=== PATIENT | male | born 1985 ===

== ENCOUNTER 2016-09-28 21:31 | Emergency (ER) | payer SELFPAY ==
[~2016-09-28] VITALS: Ht 180.3 cm; Wt 80.0 kg
[2016-09-28 21:34] VITALS: Ht 180.3 cm; Wt 80.0 kg
--- NOTE | 2016-09-28 23:51 | ERD ---
ER Documentation Chief Complaint Date/Time DATE: 09/28/16 TIME: 23:50 Chief Complaint took weed candy about an hour ago HPI This is a 33 mL says he feels "weird" after having a terrible marijuana gummy bears. At this point the patient denies any suicidal homicidal ideation. No other current complaints. ROS All systems reviewed and are negative except as per history of present illness. Physical Exam Vitals Vital Signs Date Time Temp Pulse Resp B/P Pulse Ox O2 Delivery O2 Flow Rate FiO2 09/28/16 21:34 98.3 120 18 134/91 100 Physical Exam Const: [] Head: Atraumatic Eyes: Normal Conjunctiva ENT: Normal External Ears, Nose and Mouth. Neck: Full range of motion..~ No meningismus. Resp: Clear to auscultation bilaterally Cardio: Regular rate and rhythm, no murmurs Abd: Soft, non tender, non distended. Normal bowel sounds Skin: No petechiae or rashes Back: No midline or flank tenderness Ext: No cyanosis, or edema Neur: Awake and alert Psych: Normal Mood and Affect Procedures/MDM Patient was seen initially and sent to the [facility]. Patient eloped prior to full treatments Departure Diagnosis: Primary Impression: Accidental overdose Encounter type: initial encounter Qualified Code: T50.901A - Accidental overdose, initial encounter Condition: Stable MALIK YATES Sep 28, 2016 23:51
== END 2016-09-28 23:16 | disposition left against medical advice (07) ==
LOC: E/R 21:31
DX: T40.7X1A Poisoning by cannabis (derivatives), accidental (unintentional), initial encounter (principal)
CPT/HCPCS: 99282